=== PATIENT | male | born 1955 | race Caucasian/White ===

== ENCOUNTER 2022-08-23 11:01 | Inpatient (IN) | payer SELFPAY ==
[~2022-08-23] VITALS: Ht 185.4 cm; Wt 100.2 kg
[2022-08-23 11:27] LABS: BASOPHILS % 0.7 % (0.0-1.0); EOSINOPHILS # (AUTO) 0.2 (0.0-0.4); EOSINOPHILS % 3.6 % (0.0-6.0); HEMATOCRIT 43.7 % (38.2-49.6); HEMOGLOBIN 14.4 g/dL (14.0-18.0); LYMPHOCYTES # (AUTO) 1.2 (1.0-3.2); LYMPHOCYTES % 29.6 % (18.0-39.1); MEAN CORPUSCULAR HEMOGLOBIN 29.3 pg (28-32); MONOCYTES # (AUTO) 0.4 (0.2-0.8); MONOCYTES % 10.1 % (4.4-11.3); NEUTROPHILS # (AUTO) 2.3 (2.1-6.9); NEUTROPHILS % 55.8 % (38.7-80.0); PLATELET COUNT 197 x10e3/uL (140-360); RED BLOOD COUNT 4.91 x10e6/uL (4.3-5.7); RED CELL DISTRIBUTION WIDTH 13.8 % (11.7-14.4)
[2022-08-23] MEDS ORDERED: SODIUM CHLORIDE FLUSH 10 ML SYR IV PRN (11:30)
[2022-08-23 11:41] LABS: ALANINE AMINOTRANSFERASE 22 IU/L (0-55); ALBUMIN 3.9 g/dL (3.5-5.0); ALBUMIN/GLOBULIN RATIO 1.1 (0.8-2.0); ALKALINE PHOSPHATASE 57 IU/L (40-150); ANION GAP 14.9 mmol/L (8-16); BLOOD UREA NITROGEN 15 mg/dL (7-26); BUN/CREATININE RATIO 16 (6-25); CARBON DIOXIDE 25 mmol/L (22-29); CHLORIDE 104 mmol/L (98-107); CREATININE, SERUM 0.94 mg/dL (0.72-1.25); GLUCOSE 99 mg/dL (74-118); POTASSIUM 3.9 mmol/L (3.5-5.1); SODIUM 140 mmol/L (136-145)
[2022-08-23] MEDS ORDERED: KETOROLAC TROMETHAMINE 30 MG/ML VIAL IV STA (11:41)
[2022-08-23] MEDS ORDERED: FAMOTIDINE 20 MG/2 ML VIAL IV STA (12:26)
[2022-08-23] MEDS ORDERED: DONNATAL/LIDOCAINE/MAALOX 30 ML SUSP PO ONE (12:30)
[2022-08-23] MEDS ORDERED: ASPIRIN 81 MG CHEW TAB PO ONE (13:45)
[2022-08-23] MEDS ORDERED: SODIUM CHLORIDE FLUSH 10 ML SYR INJ PRN (13:45)
[2022-08-23] MEDS ORDERED: ONDANSETRON HCL INJ 2MG/ML 2ML 2 MG/ML VIAL IV PRN (13:45)
[2022-08-23 15:08] LABS: CREATINE KINASE 45 IU/L (30-200)
[2022-08-23 16:40] VITALS: BP 128/68
[2022-08-23 17:18] VITALS: BP 128/68
[2022-08-23 17:35] VITALS: BP 128/68
[2022-08-23] MEDS ORDERED: COREG12.5 MG PO (17:58)
[2022-08-23] MEDS ORDERED: LIPITOR20 MG PO (17:58)
[2022-08-23] MEDS ORDERED: ASPIRIN CHEW81 MG PO (17:58)
[2022-08-23] MEDS ORDERED: IBUPROFEN200 MG PO (17:58)
[2022-08-23] MEDS ORDERED: METFORMIN HCL500 MG PO (17:58)
[2022-08-23] MEDS ORDERED: HYDROCHLOROTH12.5 MG PO (17:58)
[2022-08-23] MEDS ORDERED: LISINOPRIL20 MG PO (17:58)
[2022-08-23] MEDS ORDERED: NOVOLOG100 UNIT/1 SC (17:58)
[2022-08-23] MEDS ORDERED: AMLODIPINE BESY10 MG PO (17:58)
[2022-08-23] MEDS ORDERED: LISINOPRIL 10 MG TAB PO ONE (18:00)
[2022-08-23 20:00] VITALS: BP 144/69
[2022-08-23] MEDS: HYDROCODONE/APAP 10MG-325MG TAB PO PRN (20:32)
[2022-08-23] MEDS: ATORVASTATIN 20 MG TAB PO SCH (20:33)
[2022-08-23 21:50] LABS: CREATINE KINASE 54 IU/L (30-200)
[2022-08-23 23:47] VITALS: BP 144/69
[2022-08-24] VITALS (8 sets, daily range): BP systolic 108–149; BP diastolic 64–76
[2022-08-24 06:12] LABS: BASOPHILS % 0.5 % (0.0-1.0); EOSINOPHILS # (AUTO) 0.2 (0.0-0.4); EOSINOPHILS % 3.8 % (0.0-6.0); HEMATOCRIT 42.6 % (38.2-49.6); HEMOGLOBIN 13.6 g/dL (14.0-18.0); LYMPHOCYTES # (AUTO) 1.2 (1.0-3.2); LYMPHOCYTES % 30.5 % (18.0-39.1); MEAN CORPUSCULAR HEMOGLOBIN 29.3 pg (28-32); MEAN CORPUSCULAR HGB CONC 31.9 g/dL (31-35); MEAN CORPUSCULAR VOLUME 91.8 fL (81-99); MONOCYTES # (AUTO) 0.5 (0.2-0.8); MONOCYTES % 12.4 % (4.4-11.3); NEUTROPHILS # (AUTO) 2.1 (2.1-6.9); NEUTROPHILS % 52.5 % (38.7-80.0); PLATELET COUNT 172 x10e3/uL (140-360); RED BLOOD COUNT 4.64 x10e6/uL (4.3-5.7); RED CELL DISTRIBUTION WIDTH 13.5 % (11.7-14.4)
[2022-08-24 06:44] LABS: ALBUMIN 2.9 g/dL (3.5-5.0); ALBUMIN/GLOBULIN RATIO 1.1 (0.8-2.0); ANION GAP 13.4 mmol/L (8-16); CALCIUM 7.6 mg/dL (8.4-10.2); CREATININE, SERUM 0.84 mg/dL (0.72-1.25); POTASSIUM 3.4 mmol/L (3.5-5.1)
[2022-08-24 06:57] LABS: CREATINE KINASE 38 IU/L (30-200)
[2022-08-24] MEDS: METFORMIN HCL 500 MG TAB PO SCH ×2 (08:42→17:19)
[2022-08-24] MEDS: CARVEDILOL 12.5 MG TAB PO SCH ×2 (08:43→17:19)
[2022-08-24] MEDS: ASPIRIN 81 MG ENTERIC COATED PO SCH (08:44)
[2022-08-24] MEDS: HYDROCHLOROTHIAZIDE 25 MG TAB PO SCH (08:44)
[2022-08-24] MEDS: HYDROCODONE/APAP 10MG-325MG TAB PO PRN ×2 (08:51→15:26)
[2022-08-24] MEDS: ATORVASTATIN 20 MG TAB PO SCH (20:52)
[2022-08-25] VITALS (7 sets, daily range): BP systolic 103–143; BP diastolic 61–84
[2022-08-25] MEDS: HYDROCHLOROTHIAZIDE 25 MG TAB PO SCH (09:02)
[2022-08-25] MEDS: HYDROCODONE/APAP 10MG-325MG TAB PO PRN ×3 (09:03→20:51)
[2022-08-25] MEDS: CARVEDILOL 12.5 MG TAB PO SCH ×2 (09:03→16:17)
[2022-08-25] MEDS: METFORMIN HCL 500 MG TAB PO SCH ×2 (09:03→16:17)
[2022-08-25] MEDS: ASPIRIN 81 MG ENTERIC COATED PO SCH (09:04)
[2022-08-25] MEDS ORDERED: ONDANSETRON HCL 4 MG ORAL DISINTEGRATING TAB PO PRN (13:00)
[2022-08-25] MEDS: ATORVASTATIN 20 MG TAB PO SCH (20:50)
[2022-08-26 08:00] VITALS: BP 154/71
[2022-08-26] MEDS: HYDROCHLOROTHIAZIDE 25 MG TAB PO SCH (08:27)
[2022-08-26] MEDS: CARVEDILOL 12.5 MG TAB PO SCH (08:27)
[2022-08-26] MEDS: METFORMIN HCL 500 MG TAB PO SCH (08:27)
[2022-08-26] MEDS: ASPIRIN 81 MG ENTERIC COATED PO SCH (08:27)
[2022-08-26 08:30] VITALS: BP 154/71
[2022-08-26 11:52] VITALS: BP 152/78
[2022-08-26] MEDS: HYDROCODONE/APAP 10MG-325MG TAB PO PRN (14:24)
[2022-08-26 15:48] VITALS: BP 149/83
== END 2022-08-26 18:20 | disposition home or self-care (01) | DRG 313 ==
LOC: ER 11:10 → ERHOLD 15:03 → MED/SURG2 15:28 → OBSVTOIN 08-25 08:39
PROVIDERS: ADMIT Family Medicine; ATTEND Family Medicine
DX: R07.89 Other chest pain (principal); I10 Essential (primary) hypertension; E11.69 Type 2 diabetes mellitus with other specified complication; E78.5 Hyperlipidemia, unspecified
CPT/HCPCS: 36415; 71045; 80053; 82550; 82553; 82948; 83880; 84484; 85025; 93005; 93306; 94760; 99284; G0378; J1885